=== PATIENT | male | born 1950 | race Two or more races ===

== ENCOUNTER 2020-03-15 07:12 | Day surgery (SDC) | payer OTHER | END 2020-03-15 15:50 | disposition home or self-care (01) | LOC: CIR.AMB 07:12 | PROVIDERS: ATTEND Surgery | DX: C15.5 Malignant neoplasm of lower third of esophagus (principal); Z20.828 Contact with and (suspected) exposure to other viral communicable diseases | CPT/HCPCS: 36561; C1751 ==